=== PATIENT | female | born 1965 | race Caucasian/White ===

== ENCOUNTER → 2019-10-25 | Outpatient (CLI) | payer OTHER ==
--- NOTE | 2019-10-25 15:55 | Diagnostic Imaging Report ---
EXAM: CHEST 2 VIEWS DATE: 10/25/2019 3:35 PM INDICATION: Cough COMPARISON: None FINDINGS: The trachea is midline. The lungs are symmetrically expanded without evidence for large focal consolidation, pneumothorax, or significant pleural effusion. The cardiomediastinal silhouette and pulmonary vasculature are within normal limits. No acute osseous abnormality is identified. The surrounding soft tissues are unremarkable. IMPRESSION: No acute cardiopulmonary process identified. Signed by: Dr. Jean-Claude Maciel MD on 10/25/2019 3:52 PM
== END ==
LOC: RAD 15:25
PROVIDERS: ATTEND Internal Medicine
DX: R05 Cough (principal)
CPT/HCPCS: 71046